=== PATIENT | female | born 1980 ===

== ENCOUNTER → 2021-05-30 | Outpatient (CLI) | payer OTHER ==
--- NOTE | 2021-05-30 14:53 | RAD ---
INDICATION: Reason: FALL, 05-29-2021 / Spl. Instructions: / History: COMPARISON: None. IMPRESSION: Right foot: 3 views obtained. There is some degenerative changes including at the first metatarsophal angeal joint with adjacent soft tissue swelling. There is a small ossific fragment seen adjacent to t he calcaneocuboid region. Would correlate with point tenderness since a small avulsion fracture of un known age could have this appearance. There is another ossific density adjacent to the navicular but this has more of the appearance of a ossicle. Soft tissue swelling is seen. Electronically signed by: Aldo Pang MD (05/30/2021 2:50 PM) [id number]
== END ==
LOC: PMG 13:54
PROVIDERS: ATTEND Nurse Practitioner Family
DX: M18.11 Unilateral primary osteoarthritis of first carpometacarpal joint, right hand (principal); M79.89 Other specified soft tissue disorders; M25.871 Other specified joint disorders, right ankle and foot; Z68.29 Body mass index [BMI] 29.0-29.9, adult
CPT/HCPCS: 73630